=== PATIENT | male | born 1955 | race Caucasian/White ===

== ENCOUNTER 2021-12-30 09:30 | Day surgery (SDC) | payer OTHER, BC ==
[2021-12-27 13:50] VITALS: BMI 31.7
[2021-12-30 10:02] VITALS: RESP 20
[2021-12-30 11:55] VITALS: TEMP 97.8
[2021-12-30 12:15] VITALS: BP 117/64; PULSE 60
== END 2021-12-30 12:16 | disposition home or self-care (01) ==
LOC: FASU 09:30 → MERGE 11:15 → FASU 12:16
PROVIDERS: ATTEND Internal Medicine Gastroenterology
PROC: 0DBL8ZX Excision of Transverse Colon, Via Natural or Artificial Opening Endoscopic, Diagnostic (ICD-10-PCS; 2021-12-30)
PROC: 0DBP8ZX Excision of Rectum, Via Natural or Artificial Opening Endoscopic, Diagnostic (ICD-10-PCS; 2021-12-30)
PROC: 0DBN8ZX Excision of Sigmoid Colon, Via Natural or Artificial Opening Endoscopic, Diagnostic (ICD-10-PCS; 2021-12-30)
PROC: 3E0H8KZ Introduction of Other Diagnostic Substance into Lower GI, Via Natural or Artificial Opening Endoscopic (ICD-10-PCS; 2021-12-30)
PROC: 0DBM8ZX Excision of Descending Colon, Via Natural or Artificial Opening Endoscopic, Diagnostic (ICD-10-PCS; principal; 2021-12-30 11:06)
DX: Z12.11 Encounter for screening for malignant neoplasm of colon (principal); C19 Malignant neoplasm of rectosigmoid junction; D12.3 Benign neoplasm of transverse colon; D12.4 Benign neoplasm of descending colon; D12.8 Benign neoplasm of rectum; K57.30 Diverticulosis of large intestine without perforation or abscess without bleeding; Z83.71 Family history of colonic polyps
CPT/HCPCS: 88305-TC

== ENCOUNTER 2023-01-25 12:44 | Emergency (ER) | payer OTHER, BC ==
[2023-01-25 12:59] VITALS: RESP 18; BMI 31.3
[2023-01-25] MEDS ORDERED: SODIUM CHLORIDE 0.9% 500 ML INFUS.BAG IV ONE (13:32)
[2023-01-25 14:41] LABS: BASO % 0.2 % (0-2.0); EOS % 0.1 % (0-4.5); HEMATOCRIT 35.2 % (35.4-49); HEMOGLOBIN 11.6 GM/dL (11.7-16.9); LYMPH % 3.5 % (8-40); MCH 30.3 pg (25.7-33.7); MEAN CELL VOLUME 91.7 fl (80-96); MEAN PLT VOLUME 6.4 fl (7.5-11.1); MONO % 16.2 % (3.8-10.2); PLATELET COUNT 315 10^3/uL (134-434); RBC 3.83 M/mm3 (4.00-5.60); RDW 15.5 % (11.9-15.9)
[2023-01-25 14:46] LABS: INR 1.46 (0.83-1.09); PROTHROMBIN TIME (PATIENT) 16.9 SEC (9.7-13.0)
[2023-01-25 14:49] LABS: ACTIVATED PTT 30.9 SECONDS (25.2-36.5)
[2023-01-25 15:06] LABS: POTASSIUM 4.5 mmol/L (3.5-5.1)
[2023-01-25 15:08] LABS: ALBUMIN 2.9 g/dl (3.4-5.0); CALCIUM 8.5 mg/dL (8.5-10.1); MAGNESIUM 1.9 mg/dL (1.8-2.4)
[2023-01-25 15:09] LABS: BLOOD UREA NITROGEN 16.5 mg/dL (7-18)
[2023-01-25 15:11] LABS: CREATININE 1.2 mg/dL (0.55-1.3)
[2023-01-25 15:13] LABS: BILIRUBIN,TOTAL 0.7 mg/dL (0.2-1); TOT PROT 7.2 g/dl (6.4-8.2)
[2023-01-25 16:01] LABS: EPI CELLS 4 /uL (0-25.1); HYALINE CASTS 1 /uL (0-3.1); PH,URINE 5.5 (5.0-8.0); URINE APPEARANCE CLEAR; URINE BACTERIA 0 /uL (0-1359); URINE BILIRUBIN NEGATIVE (NEGATIVE); URINE COLOR YELLOW; URINE GLUCOSE (UA) NEGATIVE (NEGATIVE); URINE KETONE NEGATIVE (NEGATIVE); URINE LEUK ESTERASE NEGATIVE (NEGATIVE); URINE NITRITE NEGATIVE (NEGATIVE); URINE PROTEIN TRACE (NEGATIVE); URINE RBC 31 /uL (0-23.9); URINE WBC 5 /uL (0-25.8)
[2023-01-25] MEDS ORDERED: PIPERACILLIN/TAZOB 4.5 GM 4.5 GM in DEXTROSE 5%-WATER - 100 ML IVPB ONE (19:07)
[2023-01-25] MEDS ORDERED: PIPERACILLIN/TAZOB 4.5 GM 4.5 GM/100 ML BAG IVPB ONE (19:11)
[2023-01-25 19:19] VITALS: BP 121/59; PULSE 76; TEMP 100.2
== END 2023-01-26 | disposition short-term general hospital (02) ==
LOC: JER 12:44
DX: U07.1 COVID-19 (principal); R10.31 Right lower quadrant pain; R53.83 Other fatigue; L02.211 Cutaneous abscess of abdominal wall
CPT/HCPCS: 0241U-QW; 36415; 71045-TC-FY; 74177-TC; 80053; 81003; 83735; 84484; 85025; 85610; 85730; 87086; 93005; 93010; 99285-25; Q9967

== ENCOUNTER 2024-11-16 10:37 | Inpatient (IN) | payer OTHER, BC ==
[2024-11-16 11:02] VITALS: BMI 29.7
[2024-11-16] MEDS ORDERED: FAMOTIDINE 20 MG/50 ML IVPB 20 MG/50 ML MG IVPB ONE (11:13)
[2024-11-16] MEDS ORDERED: ONDANSETRON 4 MG/2 ML VIAL ONE (11:13)
[2024-11-16 11:17] LABS: ABSOLUTE IMMATURE GRANULOCYTES 0.02 x10^3/uL (0.0-0.031); BASOPHILS # 0.04 x10^3/uL (0.01-0.08); EOSINOPHIL % 0.1 % (0.8-7.0); EOSINOPHILS # 0.01 x10^3/uL (0.04-0.54); MCHC 32.7 g/dl (32.3-36.5); MEAN CELL VOLUME 93.5 fl (79.0-92.2); MEAN PLT VOLUME 8.1 fl (9.4-12.4); MONOCYTE # 0.97 x10^3/uL (0.30-0.82); MONOCYTE % 8.1 % (5.3-12.2); RDW 13.2 % (12.2-16.4)
[2024-11-16] MEDS: FAMOTIDINE 20 MG/50 ML IVPB 20 MG/50 ML MG IVPB ONE (11:25)
[2024-11-16] MEDS: SODIUM CHLORIDE 1,000 ML IV STA ×2 (11:25→13:53)
[2024-11-16] MEDS: ONDANSETRON 4 MG/2 ML VIAL IVPUSH ONE (11:25)
[2024-11-16 11:54] LABS: LACTIC ACID 2.3 mmol/L (0.4-2.0)
[2024-11-16 11:59] LABS: CO2 29.0 mmol/L (21-32); GLUCOSE,RANDOM 155.0 mg/dL (74-106)
[2024-11-16 12:02] LABS: CREATININE 2.7 mg/dL (0.55-1.3); INR 1.14 (0.83-1.09); PROTHROMBIN TIME (PATIENT) 12.5 SEC (9.7-13.0); SGOT/AST 22.0 U/L (15-37); SGPT/ALT 30.0 U/L (13-61)
[2024-11-16 12:04] LABS: TOT PROT 9.1 g/dl (6.4-8.2)
[2024-11-16 12:05] LABS: ACTIVATED PTT 30.1 SECONDS (25.2-36.5); ALK PHOS 152.0 U/L (45-117)
[2024-11-16] MEDS ORDERED: LACTATED RINGERS SOLUTION 1,000 ML/1,000 ML INFUS.BAG IV SCH (18:00)
[2024-11-16] MEDS: SODIUM CHLORIDE 1,000 ML IV SCH (18:33)
[2024-11-16] MEDS: HEPARIN NA (PORCINE) 5,000 UNITS/ML 1ML VIAL SQ SCH (21:26)
[2024-11-17] MEDS ORDERED: SODIUM CHLORIDE 1,000 ML IV SCH (08:00)
[2024-11-17] MEDS: LACTATED RINGERS SOLUTION 1,000 ML/1,000 ML INFUS.BAG IV STA (08:33)
[2024-11-17 08:54] LABS: ABSOLUTE IMMATURE GRANULOCYTES 0.03 x10^3/uL (0.0-0.031); BASOPHILS # 0.04 x10^3/uL (0.01-0.08); EOSINOPHIL % 0.4 % (0.8-7.0); EOSINOPHILS # 0.03 x10^3/uL (0.04-0.54); MCHC 32.5 g/dl (32.3-36.5); MEAN CELL VOLUME 94.5 fl (79.0-92.2); MEAN PLT VOLUME 8.5 fl (9.4-12.4); MONOCYTE # 0.66 x10^3/uL (0.30-0.82); MONOCYTE % 9.0 % (5.3-12.2); RDW 13.1 % (12.2-16.4)
[2024-11-17 09:28] LABS: CO2 28.0 mmol/L (21-32); GLUCOSE,RANDOM 117.0 mg/dL (74-106)
[2024-11-17 09:31] LABS: CREATININE 1.7 mg/dL (0.55-1.3); SGOT/AST 19.0 U/L (15-37); SGPT/ALT 24.0 U/L (13-61)
[2024-11-17 09:33] LABS: TOT PROT 7.2 g/dl (6.4-8.2)
[2024-11-17 09:34] LABS: ALK PHOS 125.0 U/L (45-117)
[2024-11-17] MEDS: LACTATED RINGERS SOLUTION 1,000 ML/1,000 ML INFUS.BAG IV SCH (10:39)
[2024-11-17 13:45] VITALS: RESP 18
[2024-11-17 14:26] VITALS: BP 132/83; PULSE 70; TEMP 98.7
== END 2024-11-17 14:39 | disposition short-term general hospital (02) | DRG 389 ==
LOC: JER 10:37 → JERBED 15:47 → J8W 17:05
PROVIDERS: ADMIT Internal Medicine; ATTEND Nurse Practitioner Acute Care
DX: K56.609 Unspecified intestinal obstruction, unspecified as to partial versus complete obstruction (principal); N17.9 Acute kidney failure, unspecified; I10 Essential (primary) hypertension; E78.5 Hyperlipidemia, unspecified; Z85.038 Personal history of other malignant neoplasm of large intestine; R11.2 Nausea with vomiting, unspecified
CPT/HCPCS: 36415; 74176-TC; 80053; 83605; 83690; 83735; 84100; 84484; 85025; 85610; 85730; 86850; 86900; 86901; 93005; 93010; 99285-25